=== PATIENT | female | born 1985 | race Caucasian/White ===

== ENCOUNTER 2018-03-16 15:50 | Outpatient (CLI) | END 2018-03-16 20:05 | disposition home or self-care (01) ==

== ENCOUNTER 2018-03-17 17:26 | Outpatient (CLI) | END 2018-03-17 18:50 | disposition home or self-care (01) ==

== ENCOUNTER 2018-03-20 17:07 | Outpatient (CLI) | END 2018-03-20 18:45 | disposition home or self-care (01) ==

== ENCOUNTER 2018-03-31 16:19 | Inpatient (IN) | END 2018-04-03 13:12 | disposition home or self-care (01) | DRG 785 ==